=== PATIENT | male | born 1985 | race Caucasian/White ===

== ENCOUNTER 2016-10-23 06:05 | Emergency (ER) | payer OTHER ==
[~2016-10-23] VITALS: Ht 172.7 cm; Wt 99.1 kg
[2016-10-23] MEDS ORDERED: HYDROCODONE/ACETAMINOPHEN 10-325 MG TABLET PO ONE (11:15)
[2016-10-23 12:24] VITALS: BP 122/81
== END 2016-10-23 12:55 | disposition home or self-care (01) ==
LOC: EMS 06:06
DX: M75.92 Shoulder lesion, unspecified, left shoulder (principal); F12.90 Cannabis use, unspecified, uncomplicated; F17.210 Nicotine dependence, cigarettes, uncomplicated
CPT/HCPCS: 29105; 99284